=== PATIENT | female | born 1960 | race Hispanic/Latino ===

== ENCOUNTER 2021-04-26 00:02 | Inpatient (IN) | payer SELFPAY ==
[~2021-04-26] VITALS: Ht 167.6 cm; Wt 55.0 kg
--- NOTE | 2021-04-26 00:02 | NUR ---
PER EMS HF WITH REPORTED PAIN LF N/V ONSET THIS PM.HX IDDM.PT IS RESPONSIVE BUT UNCOOPERATIVE.UNABLE TO GET MED HX RESOLVE HO0ME MEDICATIONS.
--- NOTE | 2021-04-26 00:45 | NUR ---
PT AMB TO RR TO VOID TAKINE 25 MINUTES TO ACCOMPLISH TASK.AMB WITH CANE IS WNL. SR NO ST T CHANGES WARM BLANKET APPLIED AT PT'S REQUEST
[2021-04-26 01:01] LABS: HEMATOCRIT 31.4 % (37.0-47.0); HEMOGLOBIN 10.8 g/dl (12.0-16.0); IMMATURE GRANULOCYTES 0.4 % (0.0-5.0); MEAN CORPUSCULAR HGB 30.9 pG CALC (26.0-32.0); MEAN CORPUSCULAR HGB CONC 34.4 g/dL CAL (32.0-36.0); NEUT# 4.64 thou/uL (2.00-7.15); RED BLOOD COUNT 3.49 mill/uL (4.20-5.60); RED CELL DISTRI WIDTH 11.3 % (11.5-15.5)
[2021-04-26 01:14] LABS: URINE BILIRUBIN - DIPSTICK NEGATIVE (NEGATIVE); URINE BLOOD DIPSTICK TRACE-INTACT (NEGATIVE); URINE COLOR YELLOW; URINE GLUCOSE - DIPSTICK >=1000 mg/dL (NEGATIVE); URINE PH 6.5 (4.5-8.0); URINE PROTEIN - DIPSTICK 30 mg/dL (NEG-TRACE); URINE UROBILINOGEN - DIPSTICK 0.2 E.U./dL (0.2)
[2021-04-26 01:23] LABS: URINE LEUK ESTERASE SMALL (NEGATIVE); URINE NITRITE - DIPSTICK NEGATIVE (Negative)
[2021-04-26 01:25] LABS: URINE KETONE NEGATIVE (NEGATIVE)
[2021-04-26 01:27] LABS: URINE WBC 20-50 WBC/hpf (0-5)
[2021-04-26 01:28] LABS: URINE BACTERIA MANY hpf; URINE EPITHELIAL CELLS MODERATE EPI/hpf (0-FEW)
[2021-04-26 01:30] LABS: ALBUMIN 3.8 g/dL (3.2-5.0); ALKALINE PHOSPHATASE 193 u/l (38-126); ANION GAP 16 (6-22 (CALC)); BILIRUBIN, TOTAL 0.5 mg/dL (0.0-1.4); BUN 31 mg/dL (8-23); BUN/CREATININE RATIO 20 (12-20 (CALC)); CARBON DIOXIDE 26 mmol/l (22-30); CHLORIDE 89 mmol/l (95-108); CREATININE 1.5 mg/dL (0.5-1.0); GFR 35 ML/MIN (>=60 (CALC)); GFR FOR AFR.AMER. 43 ML/MIN (>=60 (CALC)); LIPASE 255 u/l (23-300); POTASSIUM 4.2 mmol/l (3.5-5.1); SGOT/AST 17 u/l (9-36); SODIUM 126 mmol/l (137-146); TOTAL PROTEIN 7.3 g/dL (6.3-8.2)
--- NOTE | 2021-04-26 01:44 | NUR ---
PT IS ASLEEP AND UNABLE TO VERBALIZE RESPONSES RESPONDS TO NOXIOUS STIM DR Mock INFORMED HE OBSERVES PT
--- NOTE | 2021-04-26 02:35 | NUR ---
PT RESPONDS VERBALLY BUT DOES NOT ENGAGE IN CONVERSATION W/P/D SKIN SR NO ECTOPY NO N/V
--- NOTE | 2021-04-26 04:31 | NUR ---
W/P/D SKIN ASLEEP NO N/V NO C/O PAIN SR NO ECTOPY
[2021-04-26 06:28] LABS: HEMATOCRIT 27.3 % (37.0-47.0); HEMOGLOBIN 9.5 g/dl (12.0-16.0); IMMATURE GRANULOCYTES 0.3 % (0.0-5.0); MEAN CELL VOLUME 90.7 fL CALC (80.0-100.0); MEAN CORPUSCULAR HGB 31.6 pG CALC (26.0-32.0); MEAN CORPUSCULAR HGB CONC 34.8 g/dL CAL (32.0-36.0); NEUT# 14.99 thou/uL (2.00-7.15); RED BLOOD COUNT 3.01 mill/uL (4.20-5.60); RED CELL DISTRI WIDTH 11.4 % (11.5-15.5)
[2021-04-26 06:46] LABS: CREATININE 1.5 mg/dL (0.5-1.0)
[2021-04-26 06:47] LABS: POTASSIUM 3.1 mmol/l (3.5-5.1)
--- NOTE | 2021-04-26 07:03 | NUR ---
PT REPORT TO MAMADOU
--- NOTE | 2021-04-26 07:50 | NUR ---
TELEPHONE CALL FROM FAMILY FOR UPDATE/FAMILY WAS UPDATED TO CURRENT CONDITION
--- NOTE | 2021-04-26 08:05 | NUR ---
PATIENT PLACED ON MONITIR AT THIS TIME
--- NOTE | 2021-04-26 11:04 | NUR ---
S: PARAM PARIS is a 60 F who presents with pyelonephritis / poss fistula, severe sepsis, new onset diabetes mellitus with hyperglycemia, TOBIAS. She denies a past medical history. All medications in patient's chart were reviewed. O: VS: BP 117/80 mmHg, P 97 bpm, RR 29 breath/min, T 99.2 F W 61 kg, HT 66 in, Scr= 1.5 mg/dL, CrCl= 38 ml/min A: Blood culture is pending. Urine culture is pending. P: Patient is on Zosyn 3.375g IV Q6H. Vancomycin ordered for pharmacy to dose. Start Vancomycin 1g IV Q24H. Vancomycin trough is drawn before the 4th dose on 04/29/21 at 0330. Vancomycin goal trough is between 15-20 mcg/ml. Pharmacy will follow and or advise on antibiotics use as needed.
--- NOTE | 2021-04-26 11:09 | NUR ---
OR PRESENT IN DEPARTMENT FOR PATIENT
--- NOTE | 2021-04-26 11:20 | NUR ---
PATIENT LEFT DEPARTMENT WITH OR WELCOME DESK AGENT
--- NOTE | 2021-04-26 15:20 | NUR ---
REPORT RECEIVED FROM ORESTES MONCADA
--- NOTE | 2021-04-26 15:20 | NUR ---
REPORT CALLED TO NURSE CHRISTIANO
[2021-04-26 15:55] VITALS: BP 126/65
--- NOTE | 2021-04-26 15:55 | NUR ---
PT ARRIVED TO MED/SURG ROOM 272 IN STABLE CONDITION VIA STRETCHER ACCOMPANIED BY ORESTES WEEMS;BEDSIDE REPORT RECEIVED AT THIS TIME;PT A&O X3, ORIENTED TO ROOM AND CALL LIGHT SYSTEM;PT NOTED TO BE FIJIAN SPEAKING AND TRANSLATION TO BE PROVIDED BY ORESTES BROWNLEE;WT AND VS OBTAINED AT THIS TIME;PT DENIES ANY CURRENT PAIN OR DISCOMFORTS,PAIN SCALE AND REPORTING EDUCATED;RESPIRATIONS EVEN AND UNLABORED ON RA,CLEAR LUNG SOUNDS NOTED;ABDOMEN SOFT ON PALPATION AND HYPOACTIVE IN ALL 4 QUADRANTS;PEREZ CATHETER PATENT DRAINING YELLOW/CLOUDY URINE TO GRAVITY;WEAK PEDAL PULSES;SKIN INTACT;#20G TO LAC INFUSING NS @ 125ML/HR,SITE APPEARS HEALTHY;FALL AND ALLERGY BAND APPLIED TO LEFT ARM;PT DENIES ANY ADDITIONAL NEEDS AND IS ENCOURAGED TO CALL FOR ASSISTANCE IF NEEDED;FALL PRECAUTIONS IN PLACE WITH BED IN THE LOWEST POSITION AND BED ALARM ON FOR SAFETY;CALL LIGHT IN REACH;WILL CONTINUE TO MONITOR
--- NOTE | 2021-04-26 16:05 | NUR ---
PT SLEEPING IN SEMI FOWLERS POSITION,WAKES TO VERBAL STIMULI;RESPIRATIONS EVEN AND UNLABORED ON RA;PT DENIES ANY CURRENT PAIN OR NEEDS;IV SITE PATENT;ACCUCHECK 320, PT COVERED WITH SLIDING SCALE INSULIN PER ORDER;SAFETY PRECAUTIONS REMAIN IN PLACE WITH CALL LIGHT IN REACH;WILL CONTINUE TO MONITOR
--- NOTE | 2021-04-26 17:04 | NUR ---
CRITICAL LACTIC ACID OF 4.[address] GABRIEL NOTIFIED.NO NEW ORDERS RECEIVED AT THIS TIME.
[2021-04-26 19:28] VITALS: BP 91/56
--- NOTE | 2021-04-26 19:59 | NUR ---
0: Patient resting in bed, eyes closed, on room air. Patient wakes easily, denies complaints. SCDs in place. FC to BSD, with dark yellow uine. Patient denies pain. Assessment complete.
--- NOTE | 2021-04-26 22:18 | NUR ---
Patient resting in bed, eyes closed, resp even, on room air. Patients temp 99.3. [place] cath to BSD with dark yellow urine. SCDs in place. call light [facility].
--- NOTE | 2021-04-27 00:35 | NUR ---
VERBAL ORDER OBTAINED FROM DR KATE FOR IV BOLUS OF 1 L. (BP OF 82/52)
[2021-04-27 00:38] VITALS: BP 83/56
--- NOTE | 2021-04-27 01:12 | NUR ---
Patient resting in bed, eyes closed. BP 84/52. Temp 99.8. Pt wakens easily and denies any complaints. FC to BSD with dark yellow urine. Dr. Castillo notified, orders obtained. L Ac IV site occluded. New IV site 22g R hand, NS IV 1000ml bolus initiated.
--- NOTE | 2021-04-27 02:34 | NUR ---
1000ml NS IV bolus completed. Patient awake, appropriate. Patient denies complaints. BP 85/50, HR 86, Temp 98.9, pulse ox 99% on room air. FC to BSD with dark yelllow urine. Pt tolerating po fluids. Call placed to attending for further orders.
--- NOTE | 2021-04-27 05:20 | NUR ---
REPORT REC FROM Irwin SALAS RN
[2021-04-27 06:14] LABS: CREATININE 1.3 mg/dL (0.5-1.0); MAGNESIUM 1.3 mg/dL (1.6-2.3); POTASSIUM 3.3 mmol/l (3.5-5.1)
[2021-04-27 06:15] VITALS: BP 92/52
--- NOTE | 2021-04-27 06:19 | NUR ---
PT SLEEPING IN BED. A&O X3. NO DISTRESS NOTED. PT CONTINUES TO BE HYPOTENSIVE, BP IMPROVED COMPARED TO PRIOR READINGS. DENIES ANY DIZZINESS. STATES "I THINK THIS HAPPENS TO ME AT HOME TOO", DENIES CHECKING BP AT HOME, ACCU CHECK 111 THIS MORNING. CATHETER DRAINING VIA GRAVITY. PT DENIES ANY PAIN AT THIS TIME. CURRENTLY AFEBRILE. NO OTHER NEEDS AT THIS TIME. BILATERAL SCDS IN PLACE, BED ALARM IN PLACE FOR PT SAFETY. PT INSTRUCTED TO CALL IF SHE WAS WANTING TO GET OOB, PT VERBALIZED UNDERSTANDING. CALL LIGHT WITHIN REACH.
[2021-04-27 06:27] LABS: HEMATOCRIT 26.6 % (37.0-47.0); MEAN CORPUSCULAR HGB 31.8 pG CALC (26.0-32.0); MEAN CORPUSCULAR HGB CONC 33.8 g/dL CAL (32.0-36.0); RED BLOOD COUNT 2.83 mill/uL (4.20-5.60); RED CELL DISTRI WIDTH 12.1 % (11.5-15.5)
--- NOTE | 2021-04-27 06:35 | NUR ---
CRITICAL TEST RESULT OBTAINED, TAKEN VIA TELEPHONE CALL BY Nish MCKENZIE RN BY RR. DR GABRIEL NOTIFIED, ORDERS OBTAINED FOR REPEAT BLOOD CULTURES.
--- NOTE | 2021-04-27 07:55 | NUR ---
PRELIMINARY BLOOD CULTURE RESULTS CALLED TO KENN LAM. 2 AEROBIC VIALS GROWING GRAM (-) RODS. THE PATIENT IS CURRENTLY ON ZOSYN. NO CHANGES NEEDED.
--- NOTE | 2021-04-27 09:55 | NUR ---
DR BROWNLEE AND Alysia CARRIZALES APRN AT BEDSIDE DISCUSSING POC
[2021-04-27 11:00] VITALS: BP 99/58
[2021-04-27 15:05] VITALS: BP 110/65
--- NOTE | 2021-04-27 15:16 | NUR ---
VERBAL ORDERS OBTAINED BY Alysia CARRIZALES APRN TO REMOVE PEREZ CATHETER.
--- NOTE | 2021-04-27 18:09 | NUR ---
PEREZ CATHETER REMOVED PER D ALL PRESIDENT [employer] FOUNDER . 250 CC OF YELLOW URINE NOTED PRIOR TO DISCONTINUATION. PT TOLERATED WELL.
[2021-04-27 19:00] VITALS: BP 108/64
--- NOTE | 2021-04-27 19:00 | NUR ---
REPORT RECEIVED FROM Lorie GOLDSTEIN RN
--- NOTE | 2021-04-27 20:00 | NUR ---
PATIENT ASSEMENT COMPLETED AT THIS TIME. ALERT AND ORIENTED X 3. THAI PREFERED. CLEAR LUNG SOUNDS. NORMAL HEART SOUNDS. ACTIVE BOWEL SOUNDS IN ALL 4 QUADRANTS, PATIENT HAS HAD INCONTINET LOOSE STOOLS. LAST REPORTED BOWEL MOVEMENT TODAY 04/27/21. PATIENT HAS #22 IN THE RIGHT HAND IVF AT 75ML/HR. PLAN OF CARE REVIEWED AND REORIENTED TO CALL LIGHT, REINFORCED TO CALL IF ASSITANCE IS NEEDED, NON COMPLAIANT WITH CALL LIGHT, BED ALARM IN PLACE.
--- NOTE | 2021-04-28 00:45 | NUR ---
EPISODE OF INCONTENCE OF KATHERINE. PATIENT FOUND WALKING TO THE RESTROOM.
[2021-04-28 04:00] VITALS: BP 108/57
--- NOTE | 2021-04-28 05:06 | NUR ---
PATIENT SLEEPING SOUNDLY. CALL LIGHT AND BEDSIDE TABLE WITHIN REACH
[2021-04-28 05:52] LABS: HEMATOCRIT 26.7 % (37.0-47.0); HEMOGLOBIN 8.9 g/dl (12.0-16.0); MEAN CELL VOLUME 94.7 fL CALC (80.0-100.0); MEAN CORPUSCULAR HGB 31.6 pG CALC (26.0-32.0); MEAN CORPUSCULAR HGB CONC 33.3 g/dL CAL (32.0-36.0); RED BLOOD COUNT 2.82 mill/uL (4.20-5.60); RED CELL DISTRI WIDTH 12.6 % (11.5-15.5)
--- NOTE | 2021-04-28 06:06 | NUR ---
CRITITCAL VALUE WBC 32.1 PHONE CALL TAKEN BY Nini CALHOUN RN. REPORTED BY RR.
[2021-04-28 06:12] LABS: ANION GAP 10 (6-22 (CALC)); BUN 19 mg/dL (8-23); BUN/CREATININE RATIO 18 (12-20 (CALC)); CARBON DIOXIDE 18 mmol/l (22-30); CHLORIDE 112 mmol/l (95-108); CREATININE 1.1 mg/dL (0.5-1.0); GFR 50 ML/MIN (>=60 (CALC)); GFR FOR AFR.AMER. > 60 ML/MIN (>=60 (CALC)); POTASSIUM 3.8 mmol/l (3.5-5.1); SODIUM 136 mmol/l (137-146)
[2021-04-28 06:19] LABS: MAGNESIUM 2.8 mg/dL (1.6-2.3)
--- NOTE | 2021-04-28 08:00 | NUR ---
PT SITTING IN BED EATING BREAKFAST. A&O X3. NO DISTRESS NOTED. PT REPORTS TO BE FEELING BETTER THIS MORNING. LESS LETHARGIC THIS MORNING. DENIES ANY COMPLICATIONS WITH URINATION. CLEAR BREATH SOUNDS UPON AUSCULTATION. ACTIVE BOWEL SOUNDS X4 QUADRANTS. IV HEALTHY AND PATENT TO #22G RH WITH IVF INFUSING PER MAR ORDERS. BILATERAL SCD'S IN PLACE. ASSESSMENT COMPLETED. DISCUSSED POC. CALL LIGHT WITHIN REACH.
[2021-04-28 08:17] VITALS: BP 125/69
--- NOTE | 2021-04-28 09:59 | NUR ---
DR BROWNLEE AND Alysia CARRIZALES APRN AT BEDSIDE DISCUSSING POC
--- NOTE | 2021-04-28 10:43 | NUR ---
EDUCATION PROVIDED REGARING PEPCID. PT VEBALIZED UNDERSTANDING. PT COVERED WITH 1 UNIT OF INSULIN. PER SLIDING SCALE. NO NEEDS AT THIS TIME. CALL LIGHT WITHIN REACH.
[2021-04-28] MEDS ORDERED: NOVOLIN N100 UNIT SC (11:31)
[2021-04-28] MEDS ORDERED: NYSTATIN100000 UN2 TOP (11:50)
[2021-04-28 15:04] VITALS: BP 156/79
[2021-04-28 19:00] VITALS: BP 131/66
--- NOTE | 2021-04-29 01:16 | NUR ---
NO COMPLAINTS. IVF INFUSING ORDERED. THIS PATIENT CONTINES WITH DIARRHEA. BED IN LOW POSITION. CALL LIGHT WITHIN REACH.
--- NOTE | 2021-04-29 02:37 | NUR ---
PATIENT UP TO BATHROOM WITH STANDBY ASSIST.
[2021-04-29 03:34] LABS: HEMATOCRIT 27.6 % (37.0-47.0); MEAN CELL VOLUME 94.2 fL CALC (80.0-100.0); MEAN CORPUSCULAR HGB 30.7 pG CALC (26.0-32.0); MEAN CORPUSCULAR HGB CONC 32.6 g/dL CAL (32.0-36.0); RED BLOOD COUNT 2.93 mill/uL (4.20-5.60); RED CELL DISTRI WIDTH 12.5 % (11.5-15.5)
[2021-04-29 03:54] LABS: ANION GAP 8 (6-22 (CALC)); BUN 15 mg/dL (8-23); BUN/CREATININE RATIO 16 (12-20 (CALC)); CARBON DIOXIDE 20 mmol/l (22-30); CHLORIDE 112 mmol/l (95-108); CREATININE 0.9 mg/dL (0.5-1.0); GFR > 60 ML/MIN (>=60 (CALC)); GFR FOR AFR.AMER. > 60 ML/MIN (>=60 (CALC)); POTASSIUM 3.8 mmol/l (3.5-5.1); SODIUM 137 mmol/l (137-146)
[2021-04-29 04:00] VITALS: BP 130/67
[2021-04-29 08:00] VITALS: BP 134/66
--- NOTE | 2021-04-29 08:00 | NUR ---
PT WAS FOUND RESTING IN BED IN SEMI-WESTBROOK'S POSITION'PT IS A&OX3;VS AND ASSESSMENT WERE COMPLETED;SEE SHIFT ASSESSMENT FOR DETAILS;#22G IV N RH IS RUNNING NS@50ML/HR;IV SITE IS PATENT AND APPEARS FREE OF COMPLICATIONS AT THIS TIME;SAFETY PRECAUTIONS IN PLACE;CALL LIGHT WITHIN REACH;PT ENCOURAGED TO CALL WITH ANY NEEDS OR CONCERNS;WILL CONTINUE TO MONITOR.
--- NOTE | 2021-04-29 10:00 | NUR ---
PT WAS TRANSPORTED TO RADIOLOGY IN STABLE CONDITION VIA WC ACCOMPANIED BY STAFF
--- NOTE | 2021-04-29 10:45 | NUR ---
PT RETURNED FROM RADIOLOGY IN STABLE CONDITION VIA WC ACCOMPANIED BY STAFF;PICC LINE PLACED SUCCESSFULLY
--- NOTE | 2021-04-29 12:00 | NUR ---
PT WAS FOUND SLEEPING IN BED;DUAL LUMEN PICC LINE WAS PLACED EARLIER AND APPEARS FREE OF COMPLICATIONS;SAFETY PRECAUTIONS IN PLACE;CALL LIGHT WITHIN REACH;WILL CONTINUE TO MONITOR.
[2021-04-29 15:11] VITALS: BP 155/69
--- NOTE | 2021-04-29 16:00 | NUR ---
PT WAS FOUND RESTING IN BED;PT IS REPORTING NO PAIN OR NEEDS AT THIS TIME;SAFETY PRECAUTIONS IN PLACE;CALL LIGHT WITHIN REACH;WILL CONTINUE TO MONITOR.
[2021-04-29 19:00] VITALS: BP 147/61
--- NOTE | 2021-04-29 20:00 | NUR ---
PATIENT WILL NOT COMPLY WITH BOWEL PREP. REFUSES TO DRINK IT
[2021-04-29 20:16] VITALS: BP 152/69
--- NOTE | 2021-04-29 22:00 | NUR ---
PATIENT REFUSING TO DRINK BOWEL PREP. ALSO DIFFICULT ALLOWING ACCESS TO PICC LINE. LANGUAGE BARRIER AN ISSUE
--- NOTE | 2021-04-29 23:45 | NUR ---
PATIENT FAILED TO UNDERSTAND IMPORTANCE OF THE BOWEL PREP AND WOULD NOT DRINK. COMPLIANING OF HUNGER. WILL STILL MAKE PAITENT NPO
[2021-04-30 04:00] VITALS: BP 118/68
--- NOTE | 2021-04-30 04:56 | NUR ---
NO BLOOD RETURN FROM PICC. LAB DRAW
--- NOTE | 2021-04-30 05:00 | NUR ---
DARÍO NOTIFIED THAT PATIENT REFUSED THE BOWEL PREP. DARÍO STATED NO WORRIES AND HE WILL TRY TO HAVE SOMEONE EXPLAIN THE PROCEDURE TO WHERE SHE UNDERSTANDS COMPLETELY
[2021-04-30 06:35] LABS: ANION GAP 9 (6-22 (CALC)); BUN 10 mg/dL (8-23); BUN/CREATININE RATIO 14 (12-20 (CALC)); CARBON DIOXIDE 21 mmol/l (22-30); CHLORIDE 107 mmol/l (95-108); CREATININE 0.7 mg/dL (0.5-1.0); GFR > 60 ML/MIN (>=60 (CALC)); GFR FOR AFR.AMER. > 60 ML/MIN (>=60 (CALC)); POTASSIUM 3.7 mmol/l (3.5-5.1); SODIUM 134 mmol/l (137-146)
[2021-04-30 06:46] LABS: HEMATOCRIT 29.1 % (37.0-47.0); HEMOGLOBIN 9.9 g/dl (12.0-16.0); MAGNESIUM 1.9 mg/dL (1.6-2.3); MEAN CELL VOLUME 92.4 fL CALC (80.0-100.0); MEAN CORPUSCULAR HGB 31.4 pG CALC (26.0-32.0); RED BLOOD COUNT 3.15 mill/uL (4.20-5.60); RED CELL DISTRI WIDTH 12.1 % (11.5-15.5)
--- NOTE | 2021-04-30 07:00 | NUR ---
PT REPORT RECEIVED FROM NIGHT NURSESUJATHA
[2021-04-30 07:22] VITALS: BP 147/72
--- NOTE | 2021-04-30 08:00 | NUR ---
PT WAS FOUND SLEEPING IN BED;PT AROUSED TO VERBAL STIMULI;PT IS A&OX3;PT HAS NO REPORTS OF PAIN AT THIS TIME;HEART SOUNDS ARE REGULAR IN RATE AND RHTYHM;LUNG SOUNDS ARE CLEAR;RESPIRATIONS ARE EVEN AND UNLABORED ON RA;DUAL LUMEN PICC LINE IN ANDREI IS PATENT AND APPEARS FREE OF COMPLICATIONS AT THIS TIME;SAFETY PRECAUTIONS IN PLACE;CALL LIGHT WITHIN REACH;PT ENCOURAGED TO CALL WITH ANY ISSUES
--- NOTE | 2021-04-30 09:00 | NUR ---
AND DARIO AT BEDSIDE DISCUSSING POC WITH PT
--- NOTE | 2021-04-30 09:45 | NUR ---
AND KENN CONNER AT BEDSIDE DISCUSSING POC WITH PT
--- NOTE | 2021-04-30 13:00 | NUR ---
PT WAS FOUND RESTING IN BED;PT WAS GIVEN NULYTELY AND ENCOURAGED TO DRINK FOR THE UPCOMING COLONOSCOPY;PT AGREED AND WILL CONTINUE TO MONITOR INTAKE AND ENCOURAGE PT TO DRINK;SAFETY PRECAUTIONS IN PLACE;CALL LIGHT WITHIN REACH;BED IN LOWEST POSITION;WILL CONTINUE TO MONITOR.
[2021-04-30 15:10] VITALS: BP 151/65
--- NOTE | 2021-04-30 16:00 | NUR ---
PT WAS RESTING IN BED WATCHING TV;PT EXPRESSES NO PAIN AT THIS TIME;PT IS STILL WORKING ON DRINKING THE NULYTELY;WILL CONTINUE TO ENCOURAGE;DUAL LUMEN PICC LINE IN RT UPPER ARM IS INFUSING NS@100ML/HR;IV SITE IS PATENT AND APPEARS FREE OF COMPLICATIONS AT THIS TIME;SAFETY PRECAUTIONS IN PLACE;WILL CONTINUE TO MONITOR.
[2021-04-30 19:00] VITALS: BP 137/59
--- NOTE | 2021-04-30 20:59 | NUR ---
PHYSICAL ASSESMENT COMPLETE. PT CURRENTLY DENIES PAIN OR DISCOMFORT. SCHEDULED MEDICATIONS AND PRN MEDICATION ADMINISTERED, SEE E-MAR. PT DENIES ANY NEEDS AT THIS TIME. PLAN OF CARE REVIEWED, PT DENIES QUESTIONS, VERBALIZES UNDERSTANDING. ITEMS WITHIN REACH, BED LOCKED IN LOW POSITION W/ BEDRAILS UP X2. CALL PA WITHIN REACH, AGREES TO CALL PRN.
--- NOTE | 2021-05-01 | NUR ---
PT LAYING IN BED WITH EYES CLOSED, APPEARS TO BE SLEEPING, APPEARS COMFORTABLE AND IN NO DISTRESS. RESPIRATIONS REGULAR AND UNLABORED. ITEMS REMAIN WITHIN REACH, CALL PA REMAINS WITHIN REACH. BED REMAINS LOCKED AND IN LOW POSITION WITH BEDRAILS UP X2. WILL CONTINUE TO MONITOR.
[2021-05-01 04:00] VITALS: BP 136/66
--- NOTE | 2021-05-01 05:43 | NUR ---
PT WAS FOUND SLEEPING IN BED;PT AROUSED TO VERBAL STIMULI;PT IS A&OX3;PT HAS NO REPORTS OF PAIN AT THIS TIME; HEART SOUNDS ARE REGULAR IN RATE AND RHTYHM;LUNG SOUNDS ARE CLEAR;RESPIRATIONS ARE EVEN AND UNLABORED ON RA; PICC LINE IN ANDREI PATENT AND APPEARS FREE OF COMPLICATIONS AT THIS TIME; SAFETY PRECAUTIONS IN PLACE; CALL LIGHT WITHIN REACH;PT ENCOURAGED TO CALL WITH ANY ISSUES; WILL CONTINUE TO MONITOR.
--- NOTE | 2021-05-01 05:45 | NUR ---
PT FOUND AWAKE FOUND WATCHING TV. C/O OF MOUTH PAIN. GIVEN ICE CHIPS AND COLD COMPRESS. WILL CONTINUE TO MONITOR.
[2021-05-01 06:02] LABS: ANION GAP 7 (6-22 (CALC)); BUN 5 mg/dL (8-23); BUN/CREATININE RATIO 10 (12-20 (CALC)); CARBON DIOXIDE 24 mmol/l (22-30); CHLORIDE 110 mmol/l (95-108); CREATININE 0.6 mg/dL (0.5-1.0); GFR > 60 ML/MIN (>=60 (CALC)); GFR FOR AFR.AMER. > 60 ML/MIN (>=60 (CALC)); MAGNESIUM 1.6 mg/dL (1.6-2.3); POTASSIUM 3.5 mmol/l (3.5-5.1); SODIUM 137 mmol/l (137-146)
[2021-05-01 06:10] LABS: HEMATOCRIT 26.2 % (37.0-47.0); HEMOGLOBIN 8.7 g/dl (12.0-16.0); MEAN CELL VOLUME 92.3 fL CALC (80.0-100.0); MEAN CORPUSCULAR HGB 30.6 pG CALC (26.0-32.0); MEAN CORPUSCULAR HGB CONC 33.2 g/dL CAL (32.0-36.0); RED BLOOD COUNT 2.84 mill/uL (4.20-5.60)
[2021-05-01 09:09] VITALS: BP 159/70
--- NOTE | 2021-05-01 09:09 | NUR ---
PT SLEEPING IN BED. AWAKENED TO COMPLETE ASSESSMENT. A&O X4. NO DISTRESS NOTED. BOWEL PREP NOTED NOT BEING COMPLETED. CLEAR BREATH SOUNDS UPON AUSCULTATION. ACTIVE BOWEL SOUNDS UPON AUSCULTATION, NPO STATUS REINFORCED. PT REPORTS CONTINUING DIARRHEA. PT VERBALIZES UNDERSTANDING OF SCHEDULED COLONOSCOPY. BILATERAL SCDS IN PLACE. DOUBLE LUMEN PICC TO ANDREI IN PLACE WITH IVF INFUSING PER MAR ORDER. NO OTHER NEEDS AT THIS TIME. ASSESSMENT COMPLETED. DISCUSSED POC. CALL LIGHT WITHIN REACH.
--- NOTE | 2021-05-01 09:46 | NUR ---
dr cutler and johann manrique aprn at bedside discussing poc
--- NOTE | 2021-05-01 12:24 | NUR ---
PT TAKEN VIA STRETCHER ACCOMPANIED BY OR STAFF IN STABLE CONDITION. NO OTHER NEEDS AT THIS TIME.
--- NOTE | 2021-05-01 14:28 | NUR ---
PT ARRIVED VIA STRETCHER BACK FROM OR. CURRENTLY ON ROOM AIR. NO NEED FOR O2 SUPPLEMENTATION AT THIS TIME. PT AWAKE AND A&O. NO NEEDS AT THIS TIME, PT INFORMED OF COLONOSCOPY FINDINGS. NO OTHER QUESTIONS AT THIS TIME. CALL LIGHT WITHIN REACH. PT INSTRUCTED TO CALL IF SHE NEEDED TO GET OOB, PT VERBALIZED UNDERSTANDING. HEPARIN SQ ADMINISTERED, PER NOV. PT TO BE RESUMED ON ORIGINAL DIET, WATER PROVIDED.
[2021-05-01 14:37] VITALS: BP 158/65
[2021-05-01 15:21] VITALS: BP 158/65
[2021-05-01 19:43] VITALS: BP 154/68
--- NOTE | 2021-05-01 20:31 | NUR ---
PHYSICAL ASSESMENT COMPLETE. PT CURRENTLY DENIES PAIN OR DISCOMFORT. SCHEDULED MEDICATIONS AND PRN MEDICATION ADMINISTERED, SEE E-MAR. PT GIVEN REHANA FRANKS. PLAN OF CARE REVIEWED, PT DENIES QUESTIONS, VERBALIZES UNDERSTANDING. ITEMS WITHIN REACH, BED LOCKED IN LOW POSITION W/ BEDRAILS UP X2. CALL PA WITHIN REACH, AGREES TO CALL PRN.
--- NOTE | 2021-05-02 03:45 | NUR ---
PT RESTING IN BED, NO SIGNS OF DISTRESS NOTED, RESP EVEN AND UNLABORED. PT VOICES NO NEEDS OR COMPLAINTS AT THIS TIME. CALL LIGHT IN REACH, CONTINUE TO MONITOR.
[2021-05-02 04:53] VITALS: BP 161/66
[2021-05-02 05:24] LABS: HEMATOCRIT 26.5 % (37.0-47.0); HEMOGLOBIN 8.9 g/dl (12.0-16.0); IMMATURE GRANULOCYTES 4.9 % (0.0-5.0); MEAN CORPUSCULAR HGB 30.9 pG CALC (26.0-32.0); MEAN CORPUSCULAR HGB CONC 33.6 g/dL CAL (32.0-36.0); NEUT# 5.51 thou/uL (2.00-7.15); RED BLOOD COUNT 2.88 mill/uL (4.20-5.60)
[2021-05-02 05:37] LABS: ANION GAP 6 (6-22 (CALC)); BUN 4 mg/dL (8-23); BUN/CREATININE RATIO 7 (12-20 (CALC)); CARBON DIOXIDE 25 mmol/l (22-30); CHLORIDE 108 mmol/l (95-108); CREATININE 0.5 mg/dL (0.5-1.0); GFR > 60 ML/MIN (>=60 (CALC)); GFR FOR AFR.AMER. > 60 ML/MIN (>=60 (CALC)); POTASSIUM 3.6 mmol/l (3.5-5.1); SGOT/AST 16 u/l (9-36); SODIUM 135 mmol/l (137-146)
[2021-05-02 05:43] LABS: ALBUMIN 2.3 g/dL (3.2-5.0); ALKALINE PHOSPHATASE 85 u/l (38-126); BILIRUBIN, TOTAL 0.1 mg/dL (0.0-1.4); TOTAL PROTEIN 5.1 g/dL (6.3-8.2)
[2021-05-02 07:15] VITALS: BP 152/66
--- NOTE | 2021-05-02 07:15 | NUR ---
PT ALERT AND ORIENTED. PT IN BED WHEN ENTERED ROOM. VITALS AND ASSESSMENT DONE. S1 AND S2 HEARD UPON ASCULTATION. LUNGS CLEAR BILATERALLY. BELLY SOFT. BOWELS ACTIVE IN ALL 4 QUADRANTS. SKIN WARM AND DRY.PEDAL PULSES STRONG BILATERALLY. NO DISTRESS NOTED. CALL LIGHT WITHIN REACH.
--- NOTE | 2021-05-02 09:03 | NUR ---
pt is agitated that she is still npo. refused her medications.
--- NOTE | 2021-05-02 12:00 | NUR ---
PT IN BED.NO DISTRESS OR PAIN INDICATED. CALL LIGHT WITHIN REACH.
[2021-05-02 15:48] VITALS: BP 162/69
--- NOTE | 2021-05-02 16:07 | NUR ---
PT IN BED. NO DISTRESS NOTED. CALL LIGHT WITHIN REACH.
[2021-05-02 19:00] VITALS: BP 152/56
--- NOTE | 2021-05-02 21:30 | NUR ---
PATIENT ASSISTED TO THE BR TO VOID. MIN ASSIST BACK TO THE BED. MATIAS FROM LAB HERE TO TRANSLATE. NO COMPLAINTS. ACCU-CHECK WAS 255-COVERED WITH HUMALOG PER COVERAGE PROTOCOL. PROVIDED WITH HS SNACK. CALL LIGHT IN REACH. WILL CONT TO MONITOR.
--- NOTE | 2021-05-02 23:06 | NUR ---
PATIENT RESTING IN BED AT THIS TIME. AWAKE ALERT AND ORIENTEDX3. PATIENT WITH NO COMPLAINTS OF PAIN AT THIS TIME. PATIENT WITH DOUBLE LUMEN PICC TO RIGHT UPPER ARM. SAFETY PRECAUTIONS REINFORCED. CALL LIGHT IN REACH. WILL CONT TO MONITOR.
--- NOTE | 2021-05-02 23:29 | NUR ---
RESTING IN BED WATCHING TV AT THIS TIME-NO COMPLAINTS. IVF NS PATENT AND INFUSING VIA RIGHT UPPER ARM PICC AT 100CC/HR. CALL LIGHT IN REACH. WILL CONT TO MONITOR.
[2021-05-03 04:21] VITALS: BP 159/72
--- NOTE | 2021-05-03 07:21 | NUR ---
PATIENT RESTING IN BED AT THIS TIME WITH EYES CLOSED. RESPS ARE EVEN AND UNLABORED. IVF PATENT AND INFUSING VIA RIGHT UPPER ARM PICC AT 100CC/HR. CALL LIGHT IN REACH. WILL CONT TO MONITOR.
[2021-05-03 07:38] VITALS: BP 149/70
--- NOTE | 2021-05-03 07:38 | NUR ---
PT SLEEPING IN BED. AWAKENED TO COMPLETE ASSESSMENT. A&O X4. PT V/O OF ABD DISCOMFORT. PEPCID PO GIVEN PER EMAR. CLEAR BREATH SOUNDS. ACTIVE BOWEL SOUNDS X4 QUADRANTS. ANDREI DOUBLE LUMEN PICC HEALTHY AND PATENT WITH IVF INFUSING IN ONE LUMEN. ASSESSMENT COMPLETED. DISCUSSED POC. CALL LIGHT WITHIN REACH.
--- NOTE | 2021-05-03 10:00 | NUR ---
REPORT RECEIVED FROM EDNA CARLISLE. CARE ASSUMED.
--- NOTE | 2021-05-03 12:28 | NUR ---
DR OCAMPO AT BEDSIDE AT THIS TIME. PLAN OF CARE DISCUSSED WITH PATIENT.
--- NOTE | 2021-05-03 13:41 | NUR ---
PATIENT RESTING IN BED AT THIS TIME.NO DISTRESS NOTED. CALL LIGHT IN REACH. WILL CONTINUE TO MONITOR.
[2021-05-03 15:00] VITALS: BP 172/61
--- NOTE | 2021-05-03 16:00 | NUR ---
PATIENT RESTING IN BED AWAKE.RESP ARE EVEN AND UNLABORED AT THIS TIME. NO DISTRESS NOTED. CALL LIGHT IN REACH. WILL CONTINUE TO MONITOR.
[2021-05-03 18:00] VITALS: BP 171/74
--- NOTE | 2021-05-03 19:52 | NUR ---
PATIENT SITTING ON THE SIDE OF HER BED EATING HER DINNER SLOWLY. AWAKE ALERT AND ORIENTEDX3 WITH NO COMPLAINTS AT THIS TIME. MATIAS FROM LAB HERE FOR TRANSLATION. PATIENT DENIES ANY PROBLEMS WITH URINATION. DENIES ANY BURNING OR DISCOMFORT AT THIS TIME. NO BM TODAY-PASSING SOME GAS. ABD SOFT WITH BS+. LUNGS ARE CLEAR. NO PERIPERAL EDEMA NOTED. IVF PATENT AND INFUSING VIA RIGHT UPPER ARM PICC AT 100CC/HR. SITE IS HEALTHY AT THIS TIME. SAFETY PRECAUTIONS REINFORCED. CALL LIGHT IN REACH. WILL CONT TO MONITOR.
--- NOTE | 2021-05-03 21:00 | NUR ---
PATIENT WATCHING TV.ACCU-CHECK WAS 141-NO HUMALOG COVERAGE REQUIRED. HS SNACK PROVIDED. IVF PATENT AND INFUSING ORDERED VIA RIGHT UPPER ARM PICC. CALL LIGHT IN REACH. WILL CONT TO MONITOR.
--- NOTE | 2021-05-04 00:45 | NUR ---
PATIENT RESTING IN BED AT THIS TIME-EYES ARE CLOSED AND RESPS ARE EVEN AND UNLABORED. IVF NS PATENT AND INFUSING VIA RIGHT UPPER ARM PICC. CALL LIGHT IN REACH. WILL CONT TO MONITOR.
--- NOTE | 2021-05-04 04:35 | NUR ---
PATIENT WITH SHEET OVER HER HEAD-RESPS ARE EVEN AND UNLABORED. IVF PATENT AND INFUSING VIA RIGHT APPUER ARM PICC. CALL LIGHT IN REACH. WILL CONT TO MONITOR.
[2021-05-04 05:30] VITALS: BP 151/62
[2021-05-04 07:00] VITALS: BP 160/80
--- NOTE | 2021-05-04 07:00 | NUR ---
BEDSIDE REPORT RECEIVED. PT LYING IN BED NO COMPLAINTS. WILL MONITOR.
[2021-05-04] MEDS ORDERED: ROCEPHIN1 G1 IV (08:39)
[2021-05-04] MEDS ORDERED: NOVOLIN N100 UNIT SC (08:39)
--- NOTE | 2021-05-04 09:00 | NUR ---
D/C IVF PER KENN CARRIZALES
[2021-05-04 10:38] VITALS: BP 162/64
--- NOTE | 2021-05-04 15:37 | NUR ---
PT IN BED LAST DAILY ROCEPHIN GIVEN EARLY PT TO BE D/CD WHEN MEDICATION FINISHED
--- NOTE | 2021-05-04 17:07 | NUR ---
PT FAMILY HERE FOR CUT OFF SAW GRADER, ESCORTED VIA WC BY BROOKE
== END 2021-05-04 17:30 | disposition home or self-care (01) | DRG 854 ==
LOC: ED 00:02 → ED-I 04:12 → ED 05:05 → ED-I 05:06 → MS2 14:59
PROVIDERS: Emergency Medicine; Nurse Practitioner; ADMIT Hospitalist; ATTEND Hospitalist
PROC: 0T778DZ Dilation of Left Ureter with Intraluminal Device, Via Natural or Artificial Opening Endoscopic (ICD-10-PCS; principal; 2021-04-26)
PROC: BT141ZZ Fluoroscopy of Kidneys, Ureters and Bladder using Low Osmolar Contrast (ICD-10-PCS; 2021-04-26)
PROC: 02HV33Z Insertion of Infusion Device into Superior Vena Cava, Percutaneous Approach (ICD-10-PCS; 2021-04-29)
PROC: B518ZZA Fluoroscopy of Superior Vena Cava, Guidance (ICD-10-PCS; 2021-04-29)
PROC: 0DBN8ZX Excision of Sigmoid Colon, Via Natural or Artificial Opening Endoscopic, Diagnostic (ICD-10-PCS; 2021-05-01)
DX: A41.51 Sepsis due to Escherichia coli [E. coli] (principal); N12 Tubulo-interstitial nephritis, not specified as acute or chronic; E87.1 Hypo-osmolality and hyponatremia; N17.9 Acute kidney failure, unspecified; N13.6 Pyonephrosis; A04.4 Other intestinal Escherichia coli infections; R65.20 Severe sepsis without septic shock; E11.65 Type 2 diabetes mellitus with hyperglycemia; R39.89 Other symptoms and signs involving the genitourinary system; E87.6 Hypokalemia; E86.0 Dehydration; D72.823 Leukemoid reaction; E83.42 Hypomagnesemia; K63.5 Polyp of colon; B96.20 Unspecified Escherichia coli [E. coli] as the cause of diseases classified elsewhere; Z20.822 Contact with and (suspected) exposure to COVID-19
CPT/HCPCS: J3475; Q9967

== ENCOUNTER 2021-06-10 14:59 | Emergency (ER) | payer SELFPAY ==
[~2021-06-10] VITALS: Ht 167.6 cm; Wt 61.0 kg
[~2021-06-10 14:59] MED LIST: NOVOLIN N100 UNIT SC; NYSTATIN100000 UN2 TOP; ROCEPHIN1 G1 IV
[2021-06-10 19:25] VITALS: BP 148/79
== END 2021-06-10 19:25 | disposition home or self-care (01) | DRG 950 ==
LOC: ED 14:59
DX: Z45.2 Encounter for adjustment and management of vascular access device (principal); E11.9 Type 2 diabetes mellitus without complications; Z79.4 Long term (current) use of insulin

== ENCOUNTER 2021-09-03 19:11 | Emergency (ER) | payer SELFPAY ==
[~2021-09-03] VITALS: Ht 167.6 cm; Wt 72.0 kg
[2021-09-03 20:10] LABS: HEMATOCRIT 31.4 % (37.0-47.0); HEMOGLOBIN 10.9 g/dl (12.0-16.0); IMMATURE GRANULOCYTES 0.2 % (0.0-5.0); MEAN CORPUSCULAR HGB 30.9 pG CALC (26.0-32.0); MEAN CORPUSCULAR HGB CONC 34.7 g/dL CAL (32.0-36.0); NEUT# 6.92 thou/uL (2.00-7.15); RED BLOOD COUNT 3.53 mill/uL (4.20-5.60); RED CELL DISTRI WIDTH 11.4 % (11.5-15.5)
[2021-09-03 20:22] LABS: ALBUMIN 3.4 g/dL (3.2-5.0); ANION GAP 11 (6-22 (CALC)); BILIRUBIN, TOTAL 0.6 mg/dL (0.0-1.4); BUN 29 mg/dL (8-23); BUN/CREATININE RATIO 27 (12-20 (CALC)); CARBON DIOXIDE 27 mmol/l (22-30); CHLORIDE 93 mmol/l (95-108); CREATININE 1.1 mg/dL (0.5-1.0); GFR 50 ML/MIN (>=60 (CALC)); GFR FOR AFR.AMER. > 60 ML/MIN (>=60 (CALC)); SGOT/AST 16 u/l (9-36); SODIUM 126 mmol/l (137-146); TOTAL PROTEIN 6.7 g/dL (6.3-8.2)
[2021-09-03 20:30] LABS: ALKALINE PHOSPHATASE 149 u/l (38-126)
[2021-09-03] MEDS ORDERED: NOVOLIN N100 UNIT SC (21:41)
[2021-09-03] MEDS ORDERED: INSULIN SC (21:41)
[2021-09-03 22:10] VITALS: BP 141/62
== END 2021-09-03 22:12 | disposition home or self-care (01) | DRG 951 ==
LOC: ED 19:11 → LWOBS 19:27
PROVIDERS: Family Medicine
DX: Z53.21 Procedure and treatment not carried out due to patient leaving prior to being seen by health care provider (principal)